=== PATIENT | female | born 1970 | race Caucasian/White ===

== ENCOUNTER 2022-03-04 17:08 | Emergency (ER) | payer MEDICAID ==
[2022-03-04] MEDS ORDERED: Ketorolac 30 MG/ML SDV IM ONE (17:54)
== END 2022-03-04 19:17 | disposition home or self-care (01) ==
LOC: JP.ED 17:08
DX: M25.512 Pain in left shoulder (principal); F17.210 Nicotine dependence, cigarettes, uncomplicated; Z88.5 Allergy status to narcotic agent; Z91.040 Latex allergy status; Z88.6 Allergy status to analgesic agent; Z88.8 Allergy status to other drugs, medicaments and biological substances; Z90.710 Acquired absence of both cervix and uterus
CPT/HCPCS: 73030; 96372; 99281; 99283; J1885

== ENCOUNTER 2023-08-11 15:49 | Emergency (ER) | payer MEDICAID ==
[2023-08-11] MEDS ORDERED: LORazepam 1 MG Tab PO ONE (16:19)
[2023-08-11 16:31] LABS: BASOPHILS ABSOLUTE AUTO 0.04 K/uL (0.00-0.10); BASOPHILS PERCENT AUTO 0.5 % (0.1-1.3); EOSINOPHILS ABSOLUTE AUTO 0.08 K/uL (0.00-0.40); HEMATOCRIT 41.9 % (34.3-46.0); HEMOGLOBIN 14.2 g/dL (11.2-15.5); IMMATURE GRAN ABSOLUTE AUTO 0.03 K/uL (0.00-0.23); IMMATURE GRAN PERCENT AUTO 0.4 % (0.0-0.7); LYMPHOCYTES ABSOLUTE AUTO 1.62 K/uL (0.8-3.3); LYMPHOCYTES PERCENT AUTO 19.8 % (11.4-47.7); MEAN CORPUSCULAR HEMOGLOBIN 31.4 pg (31.6-35.5); MEAN CORPUSCULAR HGB CONC 33.9 g/dL (31.6-35.5); MEAN CORPUSCULAR VOLUME 92.7 fL (81.4-99.0); MONOCYTES ABSOLUTE AUTO 0.64 K/uL (0.20-0.90); MONOCYTES PERCENT AUTO 7.8 % (3.3-12.6); NEUTROPHILS ABSOLUTE AUTO 5.79 K/uL (1.0-7.6); NEUTROPHILS PERCENT AUTO 70.5 % (40.0-78.1); PLATELET COUNT,PLT 230 K/uL (130-375); RED BLOOD CELL COUNT 4.52 M/uL (3.77-5.24); WHITE BLOOD CELL COUNT,WBC 8.2 K/uL (3.2-11.0)
[2023-08-11 16:49] LABS: ALANINE AMINOTRANSFERASE,ALT 17 U/L (12-78); ALBUMIN 3.5 g/dL (3.4-5.0); ALKALINE PHOSPHATASE 86 U/L (46-116); ASPARTATE AMNIOTRANSFERASE,AST 20 U/L (15-37); BILIRUBIN TOTAL 0.3 mg/dL (0.2-1.0); BLOOD UREA NITROGEN,BUN 8 mg/dL (7-18); CALCIUM 8.6 mg/dL (8.5-10.1); CARBON DIOXIDE,CO2 28 mmol/L (21-32); CHLORIDE,CL 109 mmol/L (100-108); CREATININE 0.8 mg/dL (0.6-1.0); EST CRCL DRUG DOSING (CG) 65.06 mL/min; ESTIMATED GFR 89 mL/min (>60); GLUCOSE RANDOM 94 mg/dL (74-106); SODIUM,NA 143 mmol/L (140-148); TSH ULTRASENSITIVE 1.926 uIU/mL (0.358-3.740)
[2023-08-11 17:31] LABS: APPEARANCE,URINE CLEAR (CLEAR); BILIRUBIN,URINE NEGATIVE (NEGATIVE); COLOR,URINE YELLOW (YELLOW); GLUCOSE,URINE NEGATIVE (NEGATIVE); KETONES,URINE NEGATIVE (NEGATIVE); LEUKOCYTE ESTERASE,URINE NEGATIVE (NEGATIVE); NITRITE,URINE NEGATIVE (NEGATIVE); OCCULT BLOOD,URINE SMALL (NEGATIVE); PROTEIN,URINE NEGATIVE (NEGATIVE); UROBILINOGEN,URINE 0.2 EU/dL (0.2-1.0)
[2023-08-11 17:38] LABS: AMORPHOUS SEDIMENT,URINE NOT SEEN; BACTERIA,URINE RARE; EPITHELIAL CELLS,URINE RARE; MUCUS,URINE NOT SEEN; WBC,URINE 0-5 (0-5)
[2023-08-11] MEDS ORDERED: Ondansetron 4 MG Tab.DIS PO ONE (17:48)
[2023-08-11] MEDS ORDERED: ALPRAZolam 0.25 MG Tab PO ONE ×2 (18:03→18:42)
[2023-08-11 18:17] LABS: AMPHETAMINES SCREEN, URINE NEGATIVE (NEGATIVE); BARBITURATE SCREEN,URINE NEGATIVE (NEGATIVE); BENZODIAZEPINES SCREEN,URINE NEGATIVE (NEGATIVE); METHADONE SCREEN, URINE NEGATIVE (NEGATIVE); METHAMPHETAMINES SCREEN, URINE NEGATIVE (NEGATIVE); OXYCODONE SCREEN,URINE NEGATIVE (NEGATIVE); PROPOXYPHENE SCREEN,URINE NEGATIVE (NEGATIVE); THC SCREEN,URINE 50 NG/ML PRESUMPTIVE POSITIVE (NEGATIVE)
[2023-08-11] MEDS ORDERED: Propranolol 60 MG Cap.ER PO ONE (18:41)
== END 2023-08-11 19:08 | disposition home or self-care (01) ==
LOC: JP.ED 15:49
DX: F41.0 Panic disorder [episodic paroxysmal anxiety] (principal); F17.210 Nicotine dependence, cigarettes, uncomplicated; I25.2 Old myocardial infarction; Z86.16 Personal history of COVID-19; Z88.5 Allergy status to narcotic agent; Z91.040 Latex allergy status; Z88.8 Allergy status to other drugs, medicaments and biological substances
CPT/HCPCS: 36415; 80053; 80305; 81001; 84443; 85025; 93005; 99285; A9270; Q0162